=== PATIENT | female | born 1990 | race Caucasian/White ===

== ENCOUNTER 2016-08-06 11:17 | Outpatient (CLI) | payer OTHER ==
--- NOTE | 2016-08-06 14:01 | DIAGNOSTIC IMAGING REPORT ---
PROCEDURE: US BREAST ULTRASOUND - LEFT INDICATION: Left breast tenderness. Family history breast carcinoma (grandmother, great grandmother). TECHNIQUE: High resolution hutchins scale and color Doppler sonographic images of the left breast. COMPARISON: None. FINDINGS: There is a 6 mm x 4 mm ovoid nodular lesion in the caudal left breast (0600 position) most consistent with a benign fibroadenoma (versus normal intramammary lymph node). There is a 3 mm simple cyst in the lower outer left breast (0430 position) IMPRESSION: 1. There is a 3 mm simple cyst in the lower outer left breast. 2. There is a 6 mm x 4 mm ovoid nodule in the caudal left breast consistent with a benign fibroadenoma (versus normal intramammary lymph node). 3. While there is no evidence of underlying abnormality, early follow-up left breast ultrasound in 6 months is recommended to confirm stability. 4. Findings discussed with the patient. RESULT CODE: 3- Probably benign findings - initial short-interval follow-up suggested. A. A negative report should not delay biopsy if a dominant or clinically suspicious mass is present. 10-15% of cancers are not identified by x-ray. B. A negative report may reinforce clinical impression. C. Adenosis and dense breasts may obscure an underlying neoplasm. D. False positive reports average 6-10%. E.. A yearly screening mammogram is recommended. A reminder letter will be scheduled.
== END 2016-08-06 23:00 ==
LOC: US SRH 11:17
DX: N64.4 Mastodynia (principal); N60.02 Solitary cyst of left breast; Z80.3 Family history of malignant neoplasm of breast